=== PATIENT | male | born 1995 | race Hispanic/Latino ===

== ENCOUNTER 2024-05-03 12:51 | Emergency (ER) | payer SELFPAY ==
--- NOTE | 2024-05-03 13:45 | ED.UPPEXIN ---
HPI - Extremity Injury (Upper) General Chief Complaint: Extremity Injury, Upper <Toya Cormier PA-C - Last Filed: 05/08/24 09:22> Stated Complaint: L arm fracture from total access urgent care <Toya Cormier PA-C - Last Filed: 05/08/24 09:22> Time Seen by Provider: 05/03/24 13:45 <Toya Cormier PA-C - Last Filed: 05/08/24 09:22> Focused HPI: This is a 28-year-old male that presents to the emergency department for left arm pain. Reports he fell about 5 ft off of a ladder. landed on his left arm. He was found to have a humerus fracture at Urgent Care. Sent to the ER for further evaluation. He did not hit his head or lose consciousness. Denies any other injuries or focal areas of pain. GENERAL: Well-appearing, in no acute distress HEAD: Normocephalic, atraumatic. CHEST: Clear to auscultation. ?No respiratory distress. HEART: Regular rate and rhythm.? EXTREMITIES: Deformity left mid humerus NEURO: ?Alert and oriented x3. Patient screened in triage and initial orders placed.? ?Additional care and disposition to be based upon?diagnostic testing and treatment. 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 Interpretive services used for my portion of HPI, [facility]ison #[id number]. Patient is left-hand dominant. He denies any paresthesias. he was given acetaminophen in Urgent Care. <Cher Nance MD - Last Filed: 05/04/24 11:23> Related Data Allergies/Adverse Reactions: Allergies Allergy/AdvReac Type Severity Reaction Status Date / Time No Known Allergies Allergy Verified 05/08/24 08:12 <Toya Cormier PA-C - Last Filed: 05/08/24 09:22> Review of Systems Review of Systems: CONSTITUTIONAL: Denies fever. MUSCULOSKELETAL: Reports joint pain, and myalgia. NEUROLOGIC: Denies numbness <Toya Cormier PA-C - Last Filed: 05/08/24 09:22> All systems reviewed & are unremarkable except as noted in HPI and below <Toya Cormier PA-C - Last Filed: 05/08/24 09:22> [facility] Past Medical History Medical History: Medical History Left hand dominant <TAYLOR Keller Last Filed: 05/08/24 09:22> Social History Social History: Social History (Updated 05/08/24 @ 08:15 by Renee Sandoval [employer]) Smoking status: Never smoker Alcohol intake: never Substance use type: does not use Do You Feel Safe in your Home?: Yes Lack of Transportation: No Lack of Food: Never True Current Housing: I Have Housing Concerned About Future Housing: No Difficulty Paying Gas/Electric Bills: No Difficulty Paying for Meds: YES Currently Unemployed: YES Education: High School Diploma/GED Difficulty w/ Childcare or Family Care: No Living arrangements: with friend(s) Occupation/Education: occupation 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 HEAD: Normocephalic, atraumatic. EYES: Non injected, non icteric ENT: Nares clear, no rhinorrhea or epistaxis. NECK: Supple. CHEST: Speaking in full sentences. No respiratory distress. HEART: Regular rate and rhythm. Brisk capillary refill and 2+ radial pulse on the left. ABDOMEN: Soft, nondistended. EXTREMITIES: Shoulders initially held asymmetrically with initial parents that a left shoulder is inferior however patient is able to demonstrate e
[2024-05-03 13:47] VITALS: BP 115/70; PULSE 77; RESP 77; TEMP 36.8; O2SAT 100
[2024-05-03] MEDS: HYDROcodone/acetaminophen (*CRX) 5-325 MG TABLET 1 TAB PO (14:46)
[2024-05-03] MEDS: HYDROmorphone HCL INJ (*CRX) 1 MG/ML SYR IM (15:45)
[2024-05-03 16:35] VITALS: BP 110/77; PULSE 64; RESP 20; TEMP 36.9; O2SAT 99
== END 2024-05-03 16:38 | disposition home or self-care (01) ==
PROVIDERS: Emergency Provider Student in an Organized Health Care Education/Training Program
DX: S42.302A Unspecified fracture of shaft of humerus, left arm, initial encounter for closed fracture (principal); W11.XXXA Fall on and from ladder, initial encounter
CPT/HCPCS: 29105; 99283; A4565; A9270; J1170